=== PATIENT | male | born 1995 | race Caucasian/White ===

== ENCOUNTER 2024-11-30 08:44 | Emergency (ER) | payer OTHER, SELFPAY ==
--- NOTE | 2024-11-30 08:46 | ED_ITS ---
HPI - Abdominal Pain General Chief Complaint: Abdominal Pain Stated Complaint: Abdominal Pain/Right Side Time Seen by Provider: 11/30/24 08:46 Source: patient Mode of arrival: ambulatory Limitations: no limitations History of Present Illness HPI narrative: Dandy is a 29-year-old male patient presenting to the clinic today with complaints of right lower quadrant abdominal pain since 04/19 last night. States he was at work when it occurred. He denies any known injury. Last bowel movement was yesterday and normal. Pain is sharp and dull-constant, worse with movement. Denies fevers, chills, body aches, nausea, vomiting. No history of abdominal surgeries. Related Data Home Medications ?Medication ?Instructions ?Recorded ?Confirmed ?Last Taken ?Type No Home Medications 11/30/24 11/30/24 Unknown History Allergies Allergy/AdvReac Type Severity Reaction Status Date / Time No Known Allergies Allergy Verified 11/30/24 08:58 Review of Systems Review of Systems: Pertinent positives per HPI. Patient denies any fever, chills, rash, headache, visual changes, dizziness, cough, shortness of breath, chest pain, palpitations, nausea, vomiting, diarrhea, constipation, or any urinary issues. PMFSH Comments At the time of my signature, I reviewed and agree with the nursing past medical, surgical, social, and family history. There is no relevant family history pertinent to the patient complaint. Exam Narrative: General: Well-developed, well nourished, in no apparent distress. Head: Normocephalic, atraumatic. Cardio: Regular rate and rhythm, s1 and s2 normal, no murmur appreciated. Resp: Clear to auscultation bilaterally, no rhonchi, rales, wheezing or rubs. Abdomen: Soft, pliable, bowel sounds present in all quadrants, right lower quadrant tender to palpation, positive Rovsing's, positive jarring, no organomegly, no CVAT tenderness. Course Course Emergency Course: Portions of this record may have been created with voice recognition software. Level of Care: Express Care Visit Vital Signs Vital signs: Vital Signs Temperature 37.0 C 11/30/24 08:49 Pulse Rate 95 11/30/24 08:49 Respiratory Rate 20 11/30/24 08:49 Blood Pressure 140/61 11/30/24 08:49 Pulse Oximetry 100 11/30/24 08:49 Oxygen Delivery Room Air 11/30/24 08:49 Temperature 37.0 C 11/30/24 08:49 Pulse Rate 95 11/30/24 08:49 Respiratory Rate 20 11/30/24 08:49 Blood Pressure 140/61 11/30/24 08:49 Pulse Oximetry 100 11/30/24 08:49 Oxygen Delivery Room Air 11/30/24 08:49 Vital signs reviewed Transfer Transfered to: [facility]) Transportation: Other (Private car) Transfer rationale: RLQ abdomen pain- r/o appy Accepting physician: Dr. Felix Transfer comments: Private car- NPO MDM - Abdominal Pain MDM Narrative Medical decision making narrative: At the time of visit patient is resting comfortably on the exam table. Patient appears to be nontoxic. Plan: Patient has positive McBurney's, positive Rovsing's, and positive jarring sign. Recommend transfer to the ER for further evaluation to rule out appendicitis. Patient agrees to transfer. Patient would like to go to [place], [place]. Report called to Regine CLAYTON for continuity of care and Dr. Felix accepts patient for transfer. Patient to be transferred via private car and kept NPO Differential Diagnosis Differential diagnosis: Likely abdominal pain, acute appendicitis, calculus of kidney, constipation, diverticulitis, gastroenteritis, pancreatitis and small bowel obstruction Discharge Plan Discharge Clinical Impression: Abdominal pain, acute, right lower quadrant Patient Disposition: Acute Care Hospital Condition: Stable Patient Language: Ukrainian Prescriptions: No Action No Home Medications Follow-up/Referrals: UNKNOWN,DOCTOR [Non-Staff] - Time of Disposition: 09:00 Quality NIHSS Nursing Documentation ED NIHSS nursing documentation: reviewed/agree
[2024-11-30 08:49] VITALS: BP 140/61; PULSE 95; RESP 20; TEMP 37; O2SAT 100
--- OUTSIDE RECORDS SUMMARY | 2024-11-30 08:58 | XMS_ITS | Clinical Summary ---
Author Organization [facility] Address [address] [place] [address] Care Team Providers Care Procedure Analyst Name Role Phone No, Physician Primary Care Provider [phone] Allergies No known active allergies Medications silver sulfadiazine (SILVADENE, SSD) 1 % cream Apply topically daily 50 g 10/10/19 21 Active ibuprofen (ADVIL,MOTRIN) 600 mg tablet Take 1 tablet (600 mg total) by mouth every 6 (six) hours as needed for pain 20 tablet 09/15/19 22 Active promethazine-DM (PROMETHAZINE-DM ) 1.25-3 mg/mL syrup Take 5 mL by mouth 4 (four) times a day as needed for cough (And congestion) Collaborating physician César Melo MD 118 mL 1 09/16/19 23 Active dicyclomine (BENTYL) 20 mg tablet Take 1 tablet (20 mg total) by mouth 2 (two) times a day 20 tablet 01/06/20 24 025 Active ondansetron (ZOFRAN) 4 mg tablet Take 1 tablet (4 mg total) by mouth every 6 (six) hours 12 tablet 01/06/20 24 Active Active Problems Problem Noted Date Diagnosed Date Acute bronchitis 09/15/2022 Social History Tobacco Use Types Packs/Day Years Used Date Smoking Tobacco: Every Day Cigarettes Smokeless Tobacco: Never Tobacco Cessation:Ready to Q uit: Not Asked; Counseling Given: Not Answered Alcohol Use Standard Drinks/Week Comments Yes 0 (1 standard drink = 0.6 oz pur e alcohol) occasional Personal Safety Answer Date Recorded Have you ever been in or are you currently in a harmful physical or emotional relationship or is someone making you feel afraid or unsafe? 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 Gender Identity Not on file Sexual Orientation Not on file Obstetrics History Last Filed Vital Signs Vital Sign Reading Time Taken Comments Blood Pressure 125/68 01/06/2024 8:38 PM CDT Pulse 70 01/06/2024 8:38 PM CDT Temperature 36.7 C (98 F) 01/06/2024 8:38 PM CDT Respiratory Rate 18 01/06/2024 8:38 PM CDT Oxygen Saturation 100% 01/06/2024 8:38 PM CDT Inhaled Oxygen Concentration - - Weight 70.8 kg (156 lb) 01/06/2024 8:38 PM CDT Height 175.3 cm (5' 9) 01/06/2024 8:38 PM CDT Body Mass Index 23.04 01/06/2024 8:38 PM CDT Plan of Treatment Health Maintenance Due Date Last Done Comments Depression Screening 1993 Hepatitis C Screening 1993 DTaP/Tdap/Td Vaccine (1 - Tdap) 2004 Varicella Vaccines (1 of 2 - 13+ 2-dose series) 2006 Hepatitis B Screening 10/29/2011 Regular Well Visit/Exam 18-64 10/29/2011 Pneumococcal vaccine <65 (1 of 2 - PCV) 2012 Influenza Vaccine (Season Ended) 2025 HPV Vaccines Aged Out No longer eligi ble based on patient's age to complete this topic Insurance [employer] [facility] Address: [address] [place] [id number] Care Teams Procedure Analyst Relationship Specialty Start Date End Date No, Physician PCP - General 10/09/20
--- OUTSIDE RECORDS SUMMARY | 2024-11-30 08:58 | XMS_ITS | Referral Summary ---
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
--- OUTSIDE RECORDS SUMMARY | 2024-11-30 08:58 | XMS_ITS | Clinical Summary ---
Author Organization [facility] Address [address] [place] [address] Phone Care Team Providers Care Review Analyst Name Role Phone Provider, None Primary Care Provider Unavailabl e Allergies No known active allergies Medications ondansetron (ZOFRAN ODT) 4 MG TABLET DISPERSIBLE Take 1 Tab by mouth every 8 hours as needed for Nausea - 2nd line. 10 Tab 8 Active Additional Information Patient not taking.Reported on 09/11/2019 ibuprofen (MOTRIN) 600 MG Tablet Take 1 Tablet by mouth every 6 hours as needed for Mild or more severe pain. 30 Tablet 3 Active Active Problems No known active problems Social History Tobacco Use Types Packs/Day Years Used Date Smoking Tobacco: Former Cigarettes Q uit: 08/2018 Smokeless Tobacco: Current Chew Alcohol Use Standard Drinks/Week Comments Yes 5 (1 standard drink = 0.6 oz pur e alcohol) Sex and Gender Information Value Date Recorded Sex Assigned at Not on file Legal Sex Male 11:53 PM CDT Gender Identity Not on file Sexual Orientation Not on file Last Filed Vital Signs Vital Sign Reading Time Taken Comments Blood Pressure 140/62 04/01/2023 5:05 PM CDT Pulse 74 04/01/2023 5:05 PM CDT Temperature 36.8 C (98.2 F) 04/01/2023 5:05 PM CDT Respiratory Rate 18 04/01/2023 5:05 PM CDT Oxygen Saturation 98% 04/01/2023 5:0 5 PM CDT Inhaled Oxygen Concentration - - Weight 75.9 kg (167 lb 5.3 oz) 04/01/2023 5:05 PM CDT BMI incorrect due to technical error Height 175.3 cm (5' 9) 04/01/2023 5:05 PM CDT BMI incorrect due to technical error Body Mass Index 24.71 04/01/2023 5:05 PM CDT Plan of Treatment Health Maintenance Due Date Last Done Comments Hepatitis C Virus (HCV) Screening 1993 Human Papillomavirus (HPV) Immunization (1 - Male 3-dose series) 2008 SARS-COV-2 Immunization ( - season) 2024 Influenza Immunization (Season Ended) 2025 05/21/2017, 08/31/2016, 05/28/2015, Additional history exists Respiratory Syncytial Virus (RSV) Immunization (Adult) (1 - 1-dose 75+ series) 2068 DTaP/Tdap/Td Immunization Discontinued 02/17/2012 Meningococcal Immunization (ACWY) Completed 02/17/2012 Pneumococcal Immunization Combined Aged Out 02/17/2012 No longer eligible based on patient's age to complete this topic TdaP Immunization Completed 02/17/2012 Hepatitis B Immunization Completed 013, 11/21/2012, 02/17/2012 Rotavirus Immunization Aged Out No lo nger eligible based on patient's age to complete this topic Care Teams Review Analyst Relationship Specialty Start Date End Date Provider, None [place] PCP - General 04/14/18
== END 2024-11-30 09:05 | disposition short-term general hospital (02) ==
PROVIDERS: Emergency Provider Nurse Practitioner Family
DX: R10.31 Right lower quadrant pain (principal)
CPT/HCPCS: 99202; G0463

== ENCOUNTER 2024-12-18 09:46 | Emergency (ER) | payer OTHER, SELFPAY | END 2024-12-18 10:02 | disposition left against medical advice (07) | LOC: EXPBETH 09:49 | PROVIDERS: Emergency Provider Nurse Practitioner | DX: Z53.21 Procedure and treatment not carried out due to patient leaving prior to being seen by health care provider (principal) | CPT/HCPCS: 99199 ==